=== PATIENT | female | born 1970 | race Caucasian/White ===

== ENCOUNTER → 2018-02-15 07:48 | Outpatient (CLI) | payer BC, SELFPAY ==
--- NOTE | 2018-02-15 08:04 | DI.MG.S_ITS ---
Patient Name: MARIELLE RAGSDALE date: 1970 Sex: F Attending Physician: Amalia Indications: Date: 02/15/2018 08:04 At the request of: MATILDA CORDERO Procedure: MM screening mammo BI BILATERAL DIGITAL SCREENING MAMMOGRAM 3D/2D WITH CAD: 02/15/2018 CLINICAL: Routine screening. Family history of breast cancer. Comparison is made to exams dated: 02/08/2016 mammogram and 01/30/2016 mammogram - [facility]. There are scattered fibroglandular elements in both breasts. Current study was also evaluated with a Computer Aided Detection (CAD) system. No significant masses, calcifications, or other findings are seen in either breast. IMPRESSION: NEGATIVE There is no mammographic evidence of malignancy. A 1 year screening mammogram is recommended. This exam was interpreted at Station ID: [id number]. NOTE: For mammograms, a report in lay terms will be sent to the patient. Approximately 15% of breast malignancies will not be visualized mammographically. In the management of a palpable breast mass, a negative mammogram must not discourage biopsy of a clinically suspicious lesion. Electronically Signed By: Prabhu tavares/penbernie:02/15/2018 20:05:33 letter sent: Normal Exam ACR BI-RADS Category 1: Negative 3341F
== END ==
PROVIDERS: Family Provider Family Medicine; PCP Family Medicine; Visit Provider Specialist
DX: Z12.31 Encounter for screening mammogram for malignant neoplasm of breast (principal); Z80.3 Family history of malignant neoplasm of breast
CPT/HCPCS: 77063; 77067

== ENCOUNTER → 2019-02-16 12:27 | Outpatient (CLI) | payer BC, SELFPAY ==
--- NOTE | 2019-02-16 | DI.MG.S_ITS ---
BILATERAL DIGITAL SCREENING MAMMOGRAM 3D/2D WITH CAD: 02/16/2019 CLINICAL: Routine screening. Family history of breast cancer. Comparison is made to exams dated: 02/15/2018 mammogram, 02/08/2016 mammogram, and 01/30/2016 mammogram - [facility]. There are scattered fibroglandular elements in both breasts. Current study was also evaluated with a Computer Aided Detection (CAD) system. No significant masses, calcifications, or other findings are seen in either breast. There has been no significant interval change. IMPRESSION: NEGATIVE There is no mammographic evidence of malignancy. A 1 year screening mammogram is recommended. This exam was interpreted at Station ID: [id number]. NOTE: For mammograms, a report in lay terms will be sent to the patient. Approximately 15% of breast malignancies will not be visualized mammographically. In the management of a palpable breast mass, a negative mammogram must not discourage biopsy of a clinically suspicious lesion. Electronically Signed By: Julia lerner/melissa:02/21/2019 12:55:09 letter sent: Normal Exam ACR BI-RADS Category 1: Negative 3341F
== END ==
PROVIDERS: Family Provider Family Medicine; PCP Family Medicine; Visit Provider Specialist
DX: Z12.31 Encounter for screening mammogram for malignant neoplasm of breast (principal); Z80.3 Family history of malignant neoplasm of breast
CPT/HCPCS: 77063; 77067

== ENCOUNTER → 2020-06-18 17:37 | Outpatient (CLI) | payer BC, SELFPAY ==
--- NOTE | 2020-06-18 | DI.MG.S_ITS ---
BILATERAL DIGITAL SCREENING MAMMOGRAM 3D/2D WITH CAD: 06/18/2020 CLINICAL: Routine screening. Family history of breast cancer. Comparison is made to exams dated: 06/18/2020 mammogram, 02/16/2019 mammogram, 02/15/2018 mammogram, and 01/30/2016 mammogram - [facility]. There are scattered fibroglandular elements in both breasts. Current study was also evaluated with a Computer Aided Detection (CAD) system. No significant masses, calcifications, or other findings are seen in either breast. There has been no significant interval change. IMPRESSION: NEGATIVE There is no mammographic evidence of malignancy. A 1 year screening mammogram is recommended. This exam was interpreted at Station ID: [id number]. NOTE: For mammograms, a report in lay terms will be sent to the patient. Approximately 15% of breast malignancies will not be visualized mammographically. In the management of a palpable breast mass, a negative mammogram must not discourage biopsy of a clinically suspicious lesion. Electronically Signed By: Dc gutiérrez/melissa:06/19/2020 10:35:47 letter sent: Normal Exam ACR BI-RADS Category 1: Negative 3341F
== END ==
PROVIDERS: Family Provider Family Medicine; PCP Specialist; Referring Provider Specialist; Visit Provider Specialist
DX: Z12.31 Encounter for screening mammogram for malignant neoplasm of breast (principal)
CPT/HCPCS: 77063; 77067

== ENCOUNTER → 2021-09-25 10:16 | Outpatient (CLI) | payer BC, SELFPAY ==
[2021-09-25 11:23] LABS: COVID19 -Nasal RAPID Negative (Negative)
== END ==
PROVIDERS: Family Provider Family Medicine; Visit Provider Family Medicine Sleep Medicine
DX: Z20.822 Contact with and (suspected) exposure to COVID-19 (principal)
CPT/HCPCS: 87635; C9803

== ENCOUNTER 2021-09-27 11:57 | Day surgery (SDC) | payer BC, SELFPAY ==
[2021-09-27 12:10] VITALS: BMI 30.5
--- NOTE | 2021-09-27 12:20 | PM.PREOP ---
Pre-operative Note COVID-19 COVID-19 status: Negative Result date/Date tested (Pos, Neg/Pending): 09/25/21 Interval Note History & Physical reviewed/Exam performed by Physician: Yes Changes to H&P: No ASA Class (for procedural sedation): II
--- NOTE | 2021-09-27 12:21 | PM.OP.COLON ---
Operative Date/Time/Diagnoses Date of procedure: 09/27/21 Procedure Notes SCOAP/Timeout: 1:06 p.m. Procedure in detail: ENDOSCOPIST: Nohelia Ruiz MD Sedation RN: Ene Singleton RN Sedation start time: 1:07 p.m. Sedation end time: 1:36 p.m. PROCEDURE: Colonoscopy INDICATIONS: 1. Screening for colon cancer MEDICATION: Levsin 0.125 mg sublingual, incremental doses of Versed and fentanyl until appropriate level sedation achieved. ASA CLASS: 2 CECAL WITHDRAWAL TIME: 10 minutes COMPLICATIONS: None. EXTENT OF PROCEDURE: Cecum. QUALITY OF PREP: Good with portions of liquid stool. PROCEDURE: Prior to insertion of the colonoscope, a digital rectal examination was accomplished with circumferential palpation of the distal rectal mucosa without significant findings being noted. The high-definition pediatric colonoscope was passed into the rectum in the usual fashion and advanced over to the cecum without difficulty. The ileocecal valve, appendiceal stoma, and medial wall all could be inspected and no abnormalities were seen. ASCENDING COLON: As the colonoscope was withdrawn, care was taken to expose and inspect the haustral folds and no abnormalities were seen. HEPATIC FLEXURE: Normal, no polyps, diverticula or other abnormalities. TRANSVERSE COLON: Normal, no polyps, diverticula or other abnormalities. DESCENDING COLON: Minor left-sided diverticulosis, otherwise, normal, no polyps, or other abnormalities. SIGMOID COLON: Minor left-sided diverticulosis, otherwise, normal, no polyps, or other abnormalities. RECTUM: Normal. J maneuver was produced. There was no significant perianal disease. The J maneuver was broken. The remainder of the rectum was inspected and there was no external hemorrhoid disease. The scope was withdrawn. IMPRESSION: 1. Normal colonoscopy PLAN: 1. Follow-up in clinic status post pathology results. The possibility of a missed lesion including a malignancy has been discussed with the patient previously. Potential alarm symptoms have been discussed and should be reported immediately.
[2021-09-27] MEDS: HYOSCYAMINE 0.125 MG TABLET PO (12:51)
[2021-09-27] MEDS: LACTATED RINGERS 1,000 ML 200 ML IV (12:51)
[2021-09-27] MEDS: fentaNYL 250 MCG/5 ML INJ IV (13:25)
[2021-09-27] MEDS: MIDAZOLAM 5 MG/5 ML VIAL IV (13:25)
[2021-09-27 13:40] VITALS: BP 117/79; PULSE 77; RESP 18; TEMP 36.9; O2SAT 98
[2021-09-27 13:46] VITALS: BP 119/80; PULSE 74; RESP 12; O2SAT 97
--- NOTE | 2021-09-27 13:47 | SUR.PHASEI ---
Stable PACU stay, Dr. villafana spoke with pt at bedside.
[2021-09-27 13:50] VITALS: BP 113/75; PULSE 67; RESP 13; TEMP 37.1; O2SAT 97
--- NOTE | 2021-09-27 15:40 | SUR.PHASEII ---
Late entry: pt left when ready and left in stable condition.
== END 2021-09-27 14:25 | disposition home or self-care (01) ==
PROVIDERS: Family Provider Family Medicine; PCP Family Medicine; Referring Provider Student in an Organized Health Care Education/Training Program; Visit Provider Student in an Organized Health Care Education/Training Program
PROC: 0DJD8ZZ Inspection of Lower Intestinal Tract, Via Natural or Artificial Opening Endoscopic (ICD-10-PCS; CPT 45378; principal; 2021-09-27 13:00)
DX: Z12.11 Encounter for screening for malignant neoplasm of colon (principal); K57.30 Diverticulosis of large intestine without perforation or abscess without bleeding
CPT/HCPCS: 45378; J2250; J3010

== ENCOUNTER → 2022-04-30 09:59 | Outpatient (CLI) | payer BC, SELFPAY ==
--- NOTE | 2022-04-30 | DI.MG.S_ITS ---
BILATERAL DIGITAL SCREENING MAMMOGRAM 3D/2D WITH CAD: 04/30/2022 CLINICAL: Routine screening. Family history of breast cancer. Comparison is made to exams dated: 06/18/2020 mammogram, 02/16/2019 mammogram, and 02/15/2018 mammogram - . There are scattered areas of fibroglandular density in both breasts (category b / 25%-50% glandular tissue). Current study was also evaluated with a Computer Aided Detection (CAD) system. No significant masses, calcifications, or other findings are seen in either breast. There has been no significant interval change. IMPRESSION: NEGATIVE There is no mammographic evidence of malignancy. A 1 year screening mammogram is recommended. Based on the Tyrer Cuzick model (a risk assessment model) the patient's lifetime risk is 13.7% and her 10 year risk is 3.6%. According to the ACR, ACS, and NCCN guidelines, an annual breast MRI exam along with mammogram is recommended if the patient's lifetime risk is 20% or greater. This exam was interpreted at Station ID: [id number]. NOTE: For mammograms, a report in lay terms will be sent to the patient. Approximately 15% of breast malignancies will not be visualized mammographically. In the management of a palpable breast mass, a negative mammogram must not discourage biopsy of a clinically suspicious lesion. Electronically Signed By: Dc gutiérrez/melissa:04/30/2022 17:11:19 letter sent: Normal Exam ACR BI-RADS Category 1: Negative 3341F
== END ==
PROVIDERS: Family Provider Family Medicine; PCP Family Medicine; Referring Provider Family Medicine; Visit Provider Family Medicine
DX: Z12.31 Encounter for screening mammogram for malignant neoplasm of breast (principal); Z80.3 Family history of malignant neoplasm of breast
CPT/HCPCS: 77063; 77067

== ENCOUNTER → 2023-06-09 14:49 | Outpatient (CLI) | payer BC, SELFPAY ==
--- NOTE | 2023-06-09 14:50 | DI.MG.S_ITS ---
BILATERAL DIGITAL SCREENING MAMMOGRAM 3D/2D WITH CAD: 06/09/2023 CLINICAL: Routine screening. Family history of breast cancer. Comparison is made to exams dated: 04/30/2022 mammogram, 06/18/2020 mammogram, and 02/16/2019 mammogram - [facility]. There are scattered areas of fibroglandular density in both breasts (category b / 25%-50% glandular tissue). Current study was also evaluated with a Computer Aided Detection (CAD) system. No significant masses, calcifications, or other findings are seen in either breast. There has been no significant interval change. IMPRESSION: NEGATIVE There is no mammographic evidence of malignancy. A 1 year screening mammogram is recommended. Based on the Tyrer Cuzick model (a risk assessment model) the patient's lifetime risk is 13.9% and her 10 year risk is 3.8%. According to the ACR, ACS, and NCCN guidelines, an annual breast MRI exam along with mammogram is recommended if the patient's lifetime risk is 20% or greater. This exam was interpreted at Station ID: [id number]. NOTE: For mammograms, a report in lay terms will be sent to the patient. Approximately 15% of breast malignancies will not be visualized mammographically. In the management of a palpable breast mass, a negative mammogram must not discourage biopsy of a clinically suspicious lesion. Electronically Signed By: Dc gutiérrez/melissa:06/10/2023 07:36:52 letter sent: Normal Exam ACR BI-RADS Category 1: Negative 3341F
== END ==
PROVIDERS: Family Provider Family Medicine; PCP Family Medicine; Referring Provider Family Medicine; Visit Provider Family Medicine
DX: Z12.31 Encounter for screening mammogram for malignant neoplasm of breast (principal); Z80.3 Family history of malignant neoplasm of breast
CPT/HCPCS: 77063; 77067

== ENCOUNTER → 2024-06-16 15:50 | Outpatient (CLI) | payer BC, SELFPAY ==
--- NOTE | 2024-06-16 15:51 | DI.MG.S_ITS ---
BILATERAL DIGITAL SCREENING MAMMOGRAM 3D/2D WITH CAD: 06/16/2024 CLINICAL: Routine screening. Family history of breast cancer. Comparison is made to exams dated: 06/09/2023 mammogram, 04/30/2022 mammogram, 06/18/2020 mammogram, 06/18/2020 mammogram, 02/16/2019 mammogram, and 02/15/2018 mammogram - [facility]. There are scattered areas of fibroglandular density (category b / 25%-50% glandular tissue). Current study was also evaluated with a Computer Aided Detection (CAD) system. No significant masses, calcifications, or other findings are seen in either breast. There has been no significant interval change. IMPRESSION: NEGATIVE There is no mammographic evidence of malignancy. A 1 year screening mammogram is recommended. Based on the Tyrer Cuzick model (a risk assessment model) the patient's lifetime risk is 14.1% and her 10 year risk is 4.1%. According to the ACR, ACS, and NCCN guidelines, an annual breast MRI exam along with mammogram is recommended if the patient's lifetime risk is 20% or greater. This exam was interpreted at Station ID: [id number]. NOTE: For mammograms, a report in lay terms will be sent to the patient. Approximately 15% of breast malignancies will not be visualized mammographically. In the management of a palpable breast mass, a negative mammogram must not discourage biopsy of a clinically suspicious lesion. Electronically Signed By: Adelina Degroot M.D., Ph.D. diya/melissa:06/18/2024 00:36:29 letter sent: Normal Exam ACR BI-RADS Category 1: Negative
== END ==
PROVIDERS: Family Provider Family Medicine; PCP Family Medicine; Referring Provider Family Medicine; Visit Provider Family Medicine
DX: Z12.31 Encounter for screening mammogram for malignant neoplasm of breast (principal); Z80.3 Family history of malignant neoplasm of breast
CPT/HCPCS: 77063; 77067